=== PATIENT | male | born 1960 | race Caucasian/White ===

== ENCOUNTER 2021-02-15 11:59 | Observation (INO) | payer BC ==
[2021-02-15] MEDS ORDERED: Zithromax 500 MG/ 250 ML NaCl Premix 500 MG/250 ML IVPB IV STA (12:18)
[2021-02-15] MEDS ORDERED: ROCEPHIN 2 Gm-D5w 50ML BAG** 2 G/50 ML IVPB IV STA ×2 (12:19→17:19)
[2021-02-15] MEDS ORDERED: DECADRON 10MG INJ. IV ONE (12:20)
[2021-02-15] MEDS ORDERED: REMDESIVIR 200 MG in Sodium Chloride 0.9% 250 ML 250 ML IV ONE (12:20)
[2021-02-15] MEDS ORDERED: DECADRON 10MG INJ. ONE (12:27)
[2021-02-15] MEDS ORDERED: Sodium Chloride 0.9% 1000 ML 1,000 ML ONE (12:27)
[2021-02-15] MEDS ORDERED: Zithromax 500 MG/ 250 ML NaCl Premix 500 MG/250 ML IVPB IV ONE (12:27)
[2021-02-15] MEDS ORDERED: ROCEPHIN 2 Gm-D5w 50ML BAG** 2 G/50 ML IVPB IV ONE (12:28)
[2021-02-15 12:41] LABS: A-aADO2 620; ABG HEMOGLOBIN 14.4; ARTERIAL BLD GAS O2 SATURATION 89.2 % (95-100); ARTERIAL BLOOD GAS BASE EXCESS -0.3 (-2.0-2.0); ARTERIAL BLOOD GAS FIO2 100 %; ARTERIAL BLOOD GAS PCO2 32 mmHg (35-45); ARTERIAL BLOOD GAS PO2 53 mmHg (75-100); ARTERIAL BLOOD GAS pH 7.46 (7.35-7.45); CARBOXYHEMOGLOBIN 1.8 % THgb (0.0-6.9); HCO3- 22.8 (22-28); Methhemoglobin 0.8 % (1.4-1.5)
[2021-02-15 12:42] LABS: ABG SITE LEFT BRACHIAL
[2021-02-15 12:59] LABS: Hematocrit 45.6 % (42-50); Hemoglobin 14.8 gm/dl (12.5-18.0); Mean Cell Volume 86.2 fl (78-100); Mean Corpuscular Hgb Concent. 32.5 g/dl (32-36); Mean Platelet Volume 10.4 fl (7.5-11.0); Platelet Count 163 K/mm3 (150-450); Red Blood Count 5.29 M/mm3 (4.1-5.6); White Blood Count 5.2 K/mm3 (4.0-10.5)
[2021-02-15 13:18] LABS: ALBUMIN 3.8 g/dL (3.5-5.0); ALKALINE PHOSPHATASE 56 U/L (38-126); ANION GAP 16.5 MEQ/L (5-15); BLOOD UREA NITROGEN 42 mg/dL (9-20); CHLORIDE 93 mmol/L (98-107); Calcium 8.5 mg/dL (8.4-10.2); Carbon Dioxide 23 mmol/L (22-30); Creatinine 1 0.98 mg/dL (0.66-1.25); EST GLOMERULAR FILTRATION RATE > 60.0 ML/MIN; Glucose 108 mg/dL (74-106); MAGNESIUM 2.3 mg/dL (1.6-2.3); NT PRO BNP 65.9 pg/mL (0-900); Potassium 5.2 mmol/L (3.5-5.1); SGOT/AST 90 U/L (17-59); SGPT/ALT 47 U/L (0-50); SODIUM 128 mmol/L (137-145); Total Protein 7.1 g/dL (6.3-8.2)
[2021-02-15] MEDS ORDERED: Sodium Chloride 0.9% 1000 ML 1,000 ML IV STA (13:35)
[2021-02-15 13:43] LABS: Lymphocytes 12 % (24-44); Monocyte 2 % (0.0-12.0); Neutrophils 86 % (36.-66.); Total Cells Counted 100
[2021-02-15 13:44] LABS: ANISOCYTOSIS 1+; Platelet Estimate NORMAL (NORMAL); Toxic Granulation 1+
--- NOTE | 2021-02-15 13:55 | ERPHSYRPT ---
- History of Present Illness Time Seen by Provider: 02/15/21 12:04 Source: patient Exam Limitations: no limitations Patient Subjective Stated Complaint: Covid symptoms started last tuesday positive. sob off and on for couple days, low grade fever Triage Nursing Assessment: pt alert, resp easy, face mask in place, o2 SAT 75% RA .NRB applied. skin w/d/p Physician History: 60 years old male with multiple medical problems presented in the ER with chief complaint of increasing shortness of breath for the last 10 days. Patient was tested positive for COVID-19 almost a week ago reports progressive worsening shortness of breath especially with activity initially and now even at resting. Reports painful taking deep breath with generalized chest tightness and pressure. Patient also reports subjective feeling of fever and chills. His oxygen saturation is in 70s on presentation. Nonrebreather in upper 80s. Did n ot have vaccination for Covid. Timing/Duration: day(s) (10), constant, gradual onset, worse Severity of Dyspnea-Max: severe Severity of Dyspnea-Current: severe Possible Cause: illness exposure Modifying Factors: Improves With: oxygen. Worsens With: coughing, deep breath, exertion Associated Symptoms: cough, chest pain/discomfort, fever, chills, heaviness, lightheadedness, painful breathing, tightness Allergies/Adverse Reactions: No Known Drug Allergies Allergy (Unverified 02/15/21 12:21) Home Medications: Benzonatate 200 mg PO TID 02/15/21 [History] Diphenoxylate HCl/Atropine [Diphenoxylate-Atrop 2.5-0.025] 1 each PO DAILY 02/15/21 [History] Empagliflozin/Metformin HCl [Synjardy 5-1,000 mg Tablet] 1 ea DAILY 02/15/21 [History] Metoprolol Tartrate 25 mg [Lopressor 25MG Tab] 25 mg PO BID 02/15/21 [History] Mirabegron [Myrbetriq] 50 mg PO DAILY 02/15/21 [History] Simvastatin 40 mg PO BID 02/15/21 [History] Tamsulosin HCl 0.4 mg PO DAILY 02/15/21 [History] lisinopriL [Lisinopril] 10 mg PO DAILY 02/15/21 [History] Hx Influenza Vaccination/Date Given: No Hx Pneumococcal Vaccination/Date Given: No Immunizations Up to Date: Yes Travel Risk - International Travel Have you traveled outside of the country in past 3 weeks: No - Coronavirus Screening Are you exhibiting any of the following symptoms?: Yes Symptoms: Fever, Cough: New Onset, Shortness of Breath, Vomiting/Diarrhea, Loss of Taste or Smell, Headaches/Body Aches/Fatigue Close contact with a COVID-19 positive Pt in past 14-21 Days: Yes - Vaccine Status Have you recieved a Covid-19 vaccination: No - Review of Systems Constitutional: Fever, Chills, Fatigue, Weakness Eyes: No Symptoms Ears, Nose, & Throat: Throat Swelling Respiratory: Cough, Dyspnea, Dyspnea on Exertion (PEREZ), Wheezing Cardiac: Chest Pain, Palpitations Abdominal/Gastrointestinal: No Symptoms Genitourinary Symptoms: No Symptoms Musculoskeletal: Back Pain, Myalgias Neurological: Dizziness Psychological: No Symptoms Endocrine: No Symptoms Hematologic/Lymphatic: No Symptoms Immunological/Allergic: No Symptoms - Past Medical History Pertinent Past Medical History: Yes Cardiac History: Coronary Artery Disease Endocrine Medical History: Diabetes Type II - Past Surgical History Past Surgical History: Yes - Social History Smoking Status: Former smoker Exposure to second hand smoke: No Drug Use: none Patient Lives Alone: No - Nursing Vital Signs Nursing Vital Signs: Initial Vital Signs Respiratory Rate 24 02/15/21 12:01 O2 Sat by Pulse Oximetry 79 L 02/15/21 12:01 Pain Scale Pain Intensity 3 - Physical Exam General Appearance: moderate distress, alert, anxiety Eye Exam: PERRL/EOMI, eyes nml inspection Ears, Nose, Throat Exam: pharyngeal erythema Neck Exam: normal inspection, non-tender, full range of motion Respiratory Exam: respiratory distress, diminished breath sounds, accessory muscle use, crackles/rales, rhonchi, wheezing Cardiovascular/Chest Exam: normal heart sounds, regular rate/rhythm Abdominal/Gastrointestinal Exam: soft, No tenderness Extremity Exam: non-tender, normal range of motion, pedal edema Neurologic Exam: alert, oriented x 3, cooperative, cell tuber hand II-XII nml as tested Skin Exam: normal color SpO2 Interpretation: hypoxic SpO2: 75 O2 Delivery: Non-rebreather - Course EKG Interpreted by Me: RATE (90), Sinus Rhythm, NORMAL AXIS, LAFB, Right Bundle Branch Block, Non-specific ST Changes Ordered Tests: Active Orders 24 hr Category Date Time Status Foreign Food Specialty Cook STAT Care 02/15/21 12:19 Active EKG-ER Only STAT Care 02/15/21 12:18 Active IV Insertion STAT Care 02/15/21 12:18 Active Pulse Oximetry (ED) STAT Care 02/15/21 12:18 Active Rectal Temperature STAT Care 02/15/21 12:18 Active CHEST 1 VIEW (PORTABLE) Stat Exams 02/15/21 13:01 Taken CHEST WITH CONTRAST [CT] Stat Exams 02/15/21 15:39 Taken ABG [ARTERIAL BLOOD GASES] Stat Lab 02/15/21 16:00 Completed ARTERIAL BLOOD GASES Stat Lab 02/15/21 12:18 Completed BLOOD CULTURE Stat Lab 02/15/21 12:25 Received CBC W DIFF Stat Lab 02/15/21 12:35 Completed CMP Stat Lab 02/15/21 12:35 Completed D-DIMER QUANTITATIVE Stat Lab 02/15/21 12:30 Completed Lactic Acid Stat Lab 02/15/21 12:18 Completed MAGNESIUM Stat Lab 02/15/21 12:35 Completed Manual Differential NC Stat Lab 02/15/21 12:35 Completed NT PRO BNP Stat Lab 02/15/21 12:35 Completed TROPONIN Q3H Lab 02/15/21 12:40 Completed TROPONIN Q3H Lab 02/15/21 16:20 Received TROPONIN Q3H Lab 02/15/21 18:30 Ordered TROPONIN Q3H Lab 02/15/21 21:30 Ordered TROPONIN Q3H Lab 02/16/21 00:30 Ordered BiPap/CPAP STAT RT 02/15/21 12:18 Completed Transfer Order Routine Transfer 02/15/21 Ordered Medication Summary Discontinued Medications Generic Name Dose Route Start Last Admin Trade Name Freq PRN Reason Stop Dose Admin Acetaminophen Confirm 02/15/21 15:35 Tylenol Suspension 160 Mg/5 Ml Administered 02/15/21 15:36 Dose 160 mg .ROUTE .STK-MED ONE Acetaminophen 600 mg 02/15/21 15:41 02/15/21 15:43 Tylenol Suspension 160 Mg/5 Ml PO 02/15/21 15:42 600 mg STAT ONE Administration Dexamethasone Sodium Phosphate 6 mg 02/15/21 12:20 02/15/21 12:05 Decadron 10mg Inj. IV 02/15/21 12:21 6 mg STAT ONE Administration Dexamethasone Sodium Phosphate Confirm 02/15/21 12:27 Decadron 10mg Inj. Administered 02/15/21 12:28 Dose 10 mg .ROUTE .STK-MED ONE Azithromycin 500 mg in 250 mls @ 250 mls/hr 02/15/21 12:18 02/15/21 13:40 Zithromax 500 Mg/ 250 Ml Nacl Premix IV 02/15/21 13:17 Infused STAT STA Infusion Ceftriaxone Sodium/Dextrose 2 g in 50 mls @ 100 mls/hr 02/15/21 12:19 12:38 Rocephin 2 Gm-D5w 50ml Bag IV 02/15/21 12:48 Infused STAT STA Infusion Remdesivir 200 mg/ Sodium 250 mls @ 125 mls/hr 02/15/21 12:20 02/15/21 14:32 Chloride IV 02/15/21 14:19 125 mls/hr ONCE ONE Administration Azithromycin Confirm 02/15/21 12:27 Zithromax 500 Mg/ 250 Ml Nacl Premix Administered 02/15/21 12:28 Dose 500 mg in 250 mls @ ud IV .STK-MED ONE Sodium Chloride Confirm 02/15/21 12:27 Sodium Chloride 0.9% 1000 Ml Administered 02/15/21 12:28 Dose 1,000 mls @ ud .ROUTE .STK-MED ONE Ceftriaxone Sodium/Dextrose Confirm 02/15/21 12:28 Rocephin 2 Gm-D5w 50ml Bag Administered 02/15/21 12:29 Dose 2 g in 50 mls @ ud IV .STK-MED ONE Sodium Chloride 1,000 mls @ 999 mls/hr 02/15/21 13:35 02/15/21 14:37 Sodium Chloride 0.9% 1000 Ml IV 02/15/21 14:35 Infused .Q1H1M STA Infusion Lorazepam 1 mg 02/15/21 14:21 02/15/21 14:24 Ativan 2 Mg/1 Ml Vial IV 02/15/21 14:22 1 mg 1XONLY ONE Administration Lorazepam Confirm 02/15/21 14:23 Ativan 2 Mg/1 Ml Vial Administered 02/15/21 14:24 Dose 2 mg .ROUTE .STK-MED ONE Lab/Rad Data: Laboratory Result Diagrams 02/15/21 12:35 02/15/21 12:35 Laboratory Results 02/15/21 02/15/21 02/15/21 Range/Units 16:00 12:40 12:35 WBC (4.0-10.5) K/mm3 RBC (4.1-5.6) M/mm3 Hgb (12.5-18.0) gm/dl Hct (42-50) % MCV (78-100) fl MCH (26-32) pg MCHC (32-36) g/dl RDW (11.5-14.0) % Plt Count (150-450) K/mm3 MPV (7.5-11.0) fl Segmented Neutrophils (36.-66.) % Lymphocytes (Manual) (24-44) % Monocytes (Manual) (0.0-12.0) % Toxic Granulation Platelet Estimate (NORMAL) RBC Morphology Anisocytosis D-Dimer (215-500) ng/mL Puncture Site LEFT BRACHIAL pCO2 40 (35-45) mmHg pO2 102 H (75-100) mmHg Base Excess -3.9 L (-2.0-2.0) O2 Saturation 96.8 (94-100) g/dF ABG pH 7.34 L (7.35-7.45) ABG HCO3 21.6 L (22-28) ABG O2 Sat (Measured) 98.2 (95-100) % Hebert Test NOT APPLICABLE A-a Gradient 561 a/A Ratio 0.15 Hemoglobin 13.4 Carboxyhemoglobin 0.7 (0.0-6.9) % THgb Methemoglobin 0.8 L (1.4-1.5) % Potassium 4.8 5.2 H (3.5-5.1) Temperature 37.0 C POC O2 Flow Rate 100 % Vent Mode BiPAP Inspiratory BiPAP 14 Expiratory BiPAP 8 Sodium 128 L (137-145) mmol/L Chloride 93 L (98-107) mmol/L Carbon Dioxide 23 (22-30) mmol/L Anion Gap 16.5 H (5-15) MEQ/L BUN 42 H (9-20) mg/dL Creatinine 0.98 (0.66-1.25) mg/dL Estimated GFR > 60.0 ML/MIN Glucose 108 H (74-106) mg/dL Lactic Acid (0.4-2.0) Calcium 8.5 (8.4-10.2) mg/dL Magnesium 2.3 (1.6-2.3) mg/dL Total Bilirubin 0.50 (0.2-1.3) mg/dL AST 90 H (17-59) U/L ALT 47 (0-50) U/L Alkaline Phosphatase 56 (38-126) U/L Troponin I < 0.012 (0.000-0.034) ng/mL NT-Pro-B Natriuret Pep 65.9 (0-900) pg/mL Serum Total Protein 7.1 (6.3-8.2) g/dL Albumin 3.8 (3.5-5.0) g/dL 02/15/21 02/15/21 02/15/21 Range/Units 12:35 12:30 12:18 WBC 5.2 (4.0-10.5) K/mm3 RBC 5.29 (4.1-5.6) M/mm3 Hgb 14.8 (12.5-18.0) gm/dl Hct 45.6 (42-50) % MCV 86.2 (78-100) fl MCH 28.0 (26-32) pg MCHC 32.5 (32-36) g/dl RDW 15.0 H (11.5-14.0) % Plt Count 163 (150-450) K/mm3 MPV 10.4 (7.5-11.0) fl Segmented Neutrophils 86 H (36.-66.) % Lymphocytes (Manual) 12 L (24-44) % Monocytes (Manual) 2 (0.0-12.0) % Toxic Granulation 1+ Platelet Estimate NORMAL (NORMAL) RBC Morphology ABNORMAL Anisocytosis 1+ D-Dimer 1518 H* (215-500) ng/mL Puncture Site LEFT BRACHIAL pCO2 32 L (35-45) mmHg pO2 53 L (75-100) mmHg Base Excess -0.3 (-2.0-2.0) O2 Saturation 87.0 L (94-100) g/dF ABG pH 7.46 H (7.35-7.45) ABG HCO3 22.8 (22-28) ABG O2 Sat (Measured) 89.2 L (95-100) % Hebert Test NOT APPLICABLE A-a Gradient 620 a/A Ratio 0.08 Hemoglobin 14.4 Carboxyhemoglobin 1.8 (0.0-6.9) % THgb Methemoglobin 0.8 L (1.4-1.5) % Potassium 5.0 (3.5-5.1) Temperature 37.0 C POC O2 Flow Rate 100 % Vent Mode Inspiratory BiPAP Expiratory BiPAP Sodium (137-145) mmol/L Chloride (98-107) mmol/L Carbon Dioxide (22-30) mmol/L Anion Gap (5-15) MEQ/L BUN (9-20) mg/dL Creatinine (0.66-1.25) mg/dL Estimated GFR ML/MIN Glucose (74-106) mg/dL Lactic Acid 1.0 (0.4-2.0) Calcium (8.4-10.2) mg/dL Magnesium (1.6-2.3) mg/dL Total Bilirubin (0.2-1.3) mg/dL AST (17-59) U/L ALT (0-50) U/L Alkaline Phosphatase (38-126) U/L Troponin I (0.000-0.034) ng/mL NT-Pro-B Natriuret Pep (0-900) pg/mL Serum Total Protein (6.3-8.2) g/dL Albumin (3.5-5.0) g/dL - Progress Progress: improved Air Movement: fair Progress Note: 02/15/21 13:53 Patient was in moderate respiratory distress on presentation with sats around 70s. Placed on nonrebreather which helped him with breathing but brought sats only to mid/upper 80s, placed on BiPAP and is feeling better with sats in low 90s. Given Decadron and remdesivir. Chest x-ray showed bilateral airspace disease consistent with COVID-19 reviewed by me, official report is pending. Has normal white count, lactate. Does have worsening of renal function with elevated BUN with low sodium. Given a fluid bolus as well. EKG showed sinus rhythm with no acute ST elevation and negative troponins. He is also given a dose of Rocephin and Zithromax. D-dimers are elevated, CTA is currently pending, discussed with , reviewed history, work-up, has seen patient in the ER and agreed with admission to the Covid floor. I would follow-up with the results of CTA and if anything abnormal, admitting doctor would be informed. 02/15/21 16:51 CTA is negative for PE, dissection but has bilateral Covid pneumonia and other chronic findings. Patient is being admitted to Covid floor. Blood Culture(s) Obtained: Yes Antibiotics given: Yes Discussed with : Miguel Will see patient in: hospital (full admit) Counseled pt/family regarding: lab results, diagnosis, rad results - Departure Departure Disposition: In-patient Admission Clinical Impression: COVID-19 Bilateral pneumonia Qualifiers: Pneumonia type: due to unspecified organism Lung location: unspecified part of lung Qualified Code(s): J18.9 - Pneumonia, unspecified organism Respiratory failure Qualifiers: Chronicity: acute Respiratory failure complication: hypoxia Qualified Code(s): J96.01 - Acute respiratory failure with hypoxia Condition: Fair Critical Care Time: Yes Critical Care Time(excluding separately billable procedures): Critical 30-74 mins Referrals: LULU FORD MD [Primary Care Provider] -
[2021-02-15] MEDS ORDERED: Ativan 2 MG/1 ML VIAL IV ONE (14:21)
[2021-02-15] MEDS ORDERED: Ativan 2 MG/1 ML VIAL ONE (14:23)
[2021-02-15] MEDS ORDERED: HOLD METFORMIN PRODUCTS FOR 48 HOURS MC SCH (14:40)
[2021-02-15] MEDS ORDERED: TYLENOL SUSPENSION 160 MG/5 ML ONE (15:35)
[2021-02-15] MEDS ORDERED: TYLENOL SUSPENSION 160 MG/5 ML PO ONE (15:41)
[2021-02-15 16:17] LABS: A-aADO2 561; ABG HEMOGLOBIN 13.4; ABG POTASSIUM 4.8 (3.5-5.1); ABG SITE LEFT BRACHIAL; ARTERIAL BLD GAS O2 SATURATION 98.2 % (95-100); ARTERIAL BLOOD GAS BASE EXCESS -3.9 (-2.0-2.0); ARTERIAL BLOOD GAS FIO2 100 %; ARTERIAL BLOOD GAS PCO2 40 mmHg (35-45); ARTERIAL BLOOD GAS PO2 102 mmHg (75-100); ARTERIAL BLOOD GAS VENT MODE BiPAP; ARTERIAL BLOOD GAS pH 7.34 (7.35-7.45); CARBOXYHEMOGLOBIN 0.7 % THgb (0.0-6.9); HCO3- 21.6 (22-28); HGB O2 SAT 96.8 g/dF (94-100); Methhemoglobin 0.8 % (1.4-1.5)
[2021-02-15] MEDS ORDERED: Zofran 4 MG/2 ML VIAL IV PRN (17:19)
[2021-02-15] MEDS ORDERED: TYLENOL 325 MG PO PRN (17:19)
[2021-02-15] MEDS: Sodium Chloride 0.9% 1000 ML 1,000 ML IV SCH (17:47)
[2021-02-15 19:22] LABS: Appearance CLEAR (CLEAR); Bilirubin NEGATIVE (NEGATIVE); Blood SMALL Ery/ul (0-5); Glucose >=500 mg/dL (NEGATIVE); Ketones NEGATIVE (NEGATIVE); Leukocyte Esterase NEGATIVE (NEGATIVE); Mucus SLIGHT /HPF (NEGATIVE); Nitrite NEGATIVE (NEGATIVE); Protein,Urine Dip NEGATIVE (Negative); Specific Gravity 1.029 (1.005-1.025); Urobilinogen NEGATIVE mg/dL (0-1); WBC 0-2 /HPF (0-5)
[2021-02-15 19:23] LABS: Bacteria NONE SEEN /HPF (NEGATIVE)
--- NOTE | 2021-02-15 21:39 | XRAY ---
Indication: Short of breath. Elevated d-dimer. Positive covid 19. Multiple contiguous axial images obtained through the chest using 100 cc Isovue 370 contrast and PE protocol. Comparison: None There is good opacification of the pulmonary arteries. However diffuse respiration artifact limits evaluation of the lobar and segmental branches. No obvious central pulmonary embolus. Heart not enlarged. Aorta is normal in course and caliber. Small mediastinal and right hilar calcified nodes. Lungs demonstrates diffuse bilateral consolidating airspace disease without effusion. Bony thorax intact with flowing osteophytes throughout the spine. Limited upper abdomen demonstrates fatty liver and 2.3 cm gallstone. Impression: 1. Pulmonary embolus evaluation limited by respiration artifact. No obvious central pulmonary embolus. 2. Diffuse bilateral consolidating airspace disease. Findings commonly seen with Covid 19 pneumonia. 3. Incidental fatty liver, cholelithiasis, old granulomas disease, and chronic bony findings. Comment: Preliminary interpretation made by [facility]. No critical discrepancy.
--- NOTE | 2021-02-15 21:41 | XRAY ---
Indication: Cough and short of breath. Positive covid 19. Comparison: None Portable chest demonstrates diffuse bilateral airspace disease without large effusion. Heart not enlarged. Bony thorax intact with mild degenerative changes.
[2021-02-16] MEDS ORDERED: Ativan 2 MG/1 ML VIAL IV PRN (02:16)
[2021-02-16] MEDS: Sodium Chloride 0.9% 1000 ML 1,000 ML IV SCH (02:21)
[2021-02-16 05:14] LABS: ARTERIAL BLOOD GAS PCO2 38 mmHg (35-45); ARTERIAL BLOOD GAS PO2 72 mmHg (75-100); ARTERIAL BLOOD GAS pH 7.39 (7.35-7.45)
[2021-02-16 05:15] LABS: A-aADO2 594; ABG HEMOGLOBIN 14.9; ABG POTASSIUM 4.6 (3.5-5.1); ARTERIAL BLD GAS O2 SATURATION 96.1 % (95-100); ARTERIAL BLOOD GAS BASE EXCESS -1.7 (-2.0-2.0); ARTERIAL BLOOD GAS FIO2 100 %; CARBON DIOXIDE 24 mEq/L (23-27); HCO3- 23 (22-28); Methhemoglobin 0.6 % (1.4-1.5)
[2021-02-16 05:16] LABS: ABG SITE RIGHT BRACHIAL; CARBOXYHEMOGLOBIN 1.1 % THgb (0.0-6.9); HGB O2 SAT 94.5 g/dF (94-100)
[2021-02-16 05:44] LABS: Hematocrit 47.2 % (42-50); Hemoglobin 15.1 gm/dl (12.5-18.0); Mean Cell Volume 87.1 fl (78-100); Mean Corpuscular Hemoglobin 27.9 pg (26-32); Mean Platelet Volume 9.8 fl (7.5-11.0); Platelet Count 183 K/mm3 (150-450); Red Blood Count 5.42 M/mm3 (4.1-5.6); White Blood Count 4.5 K/mm3 (4.0-10.5)
[2021-02-16 06:27] LABS: BAND 3 % (0.0-2.0); Lymphocytes 9 % (24-44); Monocyte 4 % (0.0-12.0); Neutrophils 84 % (36.-66.); Total Cells Counted 100
[2021-02-16 06:28] LABS: ALBUMIN 3.4 g/dL (3.5-5.0); ALKALINE PHOSPHATASE 56 U/L (38-126); ANION GAP 13.8 MEQ/L (5-15); BLOOD UREA NITROGEN 25 mg/dL (9-20); CHLORIDE 102 mmol/L (98-107); Calcium 8.3 mg/dL (8.4-10.2); Carbon Dioxide 25 mmol/L (22-30); Creatinine 1 0.78 mg/dL (0.66-1.25); EST GLOMERULAR FILTRATION RATE > 60.0 ML/MIN; Glucose 153 mg/dL (74-106); Platelet Estimate NORMAL (NORMAL); SGOT/AST 76 U/L (17-59); SGPT/ALT 50 U/L (0-50); SODIUM 136 mmol/L (137-145); Total Protein 6.6 g/dL (6.3-8.2)
[2021-02-16] MEDS ORDERED: PROTONIX 40 MG IV IV SCH (10:00)
[2021-02-16] MEDS ORDERED: ENOXAPARIN SODIUM SQ SCH (10:00)
[2021-02-16] MEDS ORDERED: Zithromax 500 MG/ 250 ML NaCl Premix 500 MG/250 ML IVPB IV SCH (10:00)
[2021-02-16] MEDS ORDERED: DECADRON 10MG INJ. IV SCH (10:00)
--- NOTE | 2021-02-16 10:46 | XRAY ---
Indication: Follow-up Covid 19. Short of breath. Comparison: One day earlier. Portable chest again demonstrates diffuse bilateral airspace disease slightly worsened in both upper lungs. No large effusion. Heart not enlarged.
[2021-02-16 10:49] VITALS: O2SAT 94
--- NOTE | 2021-02-16 10:50 | PCM.SSS ---
History of Present Illness - Chief Complaint Chief Complaint: severe shortness of breath for 3 days History of Present Illness: is a 60 year old male.multiple medical problems presented in the ER with chief complaint of increasing shortness of breath for the last 10 days. Patient was tested positive for COVID-19 almost a week ago reports progressive worsening shortness of breath especially with activity initially and now even at resting. Reports painful taking deep breath with generalized chest tightness and pressure. Patient also reports subjective feeling of fever and chills. His oxygen saturation is in 70s on presentation. Nonrebreather in upper 80s. Did not have vaccination for Covid. Timing/Duration: day(s) (10), constant, gradual onset, worse Severity of Dyspnea-Max: severe Severity of Dyspnea-Current: severe Possible Cause: illness exposure Modifying Factors: Improves With: oxygen. Worsens With: coughing, deep breath, exertion Associated Symptoms: cough, chest pain/discomfort, fever, chills, heaviness, lig htheadedness, painful breathing, tightness - Review of Systems Constitutional: Lethargy, No Fever, No Chills Eyes: No Symptoms Ears, Nose, & Throat: No Symptoms Respiratory: Cough, Orthopnea, Short Of Breath, Wheezing Cardiac: No Chest Pain, No Edema, No Syncope Abdominal/Gastrointestinal: No Abdominal Pain, No Nausea, No Vomiting, No Diarrhea Genitourinary Symptoms: No Dysuria Musculoskeletal: No Back Pain, No Neck Pain Skin: No Rash Neurological: No Dizziness, No Focal Weakness, No Sensory Changes Psychological: No Symptoms Endocrine: No Symptoms Hematologic/Lymphatic: No Symptoms Immunological/Allergic: No Symptoms Medications & Allergies Home Medications: Home Medication List Benzonatate 200 mg PO TID 02/15/21 [History Confirmed 02/15/21] Diphenoxylate HCl/Atropine [Diphenoxylate-Atrop 2.5-0.025] 1 each PO Q2H/PRN PRN 02/15/21 [History Confirmed 02/16/21] Empagliflozin/Metformin HCl [Synjardy 5-1,000 mg Tablet] 1 ea PO DAILY 02/15/21 [History Confirmed 02/16/21] Metoprolol Tartrate 25 mg [Lopressor 25MG Tab] 25 mg PO BID 02/15/21 [History Confirmed 02/15/21] Mirabegron [Myrbetriq] 50 mg PO DAILY 02/15/21 [History Confirmed 02/15/21] Simvastatin 40 mg PO BID 02/15/21 [History Confirmed 02/15/21] Tamsulosin HCl 2 tab PO DAILY 02/15/21 [History Confirmed 02/16/21] lisinopriL [Lisinopril] 10 mg PO DAILY 02/15/21 [History Confirmed 02/15/21] Allergies/Adverse Reactions: Allergies Allergy/AdvReac Type Severity Reaction Status Date / Time No Known Drug Allergies Allergy Unverified 02/15/21 12:21 - Past Medical History Past Medical History: Yes Cardiac History: Coronary Artery Disease Endocrine Medical History: Diabetes Type II - Past Surgical History Past Surgical History: Yes - Social History Smoking Status: Former smoker Exposure to second hand smoke: No Alcohol: None Drug Use: none - Physical Exam Vital Signs: Vital Signs - 24 hr Temp Pulse Resp BP BP Pulse Ox 02/16/21 10:00 28 H 02/16/21 09:54 84 22 91 L 02/16/21 09:00 83 24 97 02/16/21 07:32 96.9 F 91 H 20 161/72 95 02/16/21 07:26 24 02/16/21 07:15 93 L 02/16/21 07:00 92 H 18 93 L 02/16/21 06:18 28 H 89 L 02/16/21 05:00 97.5 F 86 28 H 150/72 92 L 02/16/21 04:16 90 26 H 154/86 92 L 02/16/21 04:00 22 02/16/21 03:01 22 148/77 89 L 02/16/21 02:12 24 02/16/21 02:00 96.2 F 84 24 142/68 92 L 02/16/21 01:00 97.2 F 72 24 124/68 89 L 02/16/21 00:14 96.9 F 80 24 137/62 90 L 02/16/21 00:00 24 02/15/21 23:00 96.1 F 80 24 126/68 90 L 02/15/21 22:03 78 24 135/68 96 02/15/21 22:02 24 02/15/21 21:05 97.1 F 65 24 136/78 92 L 02/15/21 20:06 71 02/15/21 20:02 24 02/15/21 19:47 96.1 F 95 H 24 132/72 92 L 02/15/21 19:30 93 L 02/15/21 19:00 69 93 L 02/15/21 18:11 94 L 02/15/21 17:40 74 26 H 94 L 02/15/21 17:26 98.6 F 78 30 H 127/79 92 L 02/15/21 17:25 97.7 F 82 21 127/78 75 L 02/15/21 17:00 98.6 F 78 30 H 127/79 92 L 02/15/21 16:52 75 L 02/15/21 16:03 82 29 H 97/53 95 02/15/21 15:48 95 H 24 111/60 94 L 02/15/21 14:31 86 24 91/66 97 02/15/21 14:00 88 22 119/70 96 02/15/21 13:17 75 L 02/15/21 13:00 90 24 110/66 95 02/15/21 12:01 24 79 L General Appearance: moderate distress, alert Neurologic Exam: alert, oriented x 3, cooperative, normal mood/affect, No motor deficits Eye Exam: PERRL/EOMI, eyes nml inspection Ears, Nose, Throat Exam: normal ENT inspection, TMs normal, pharynx normal, moist mucous membranes Neck Exam: normal inspection, non-tender, supple, full range of motion Respiratory Exam: diminished breath sounds, accessory muscle use, crackles/rales, rhonchi, wheezing, No respiratory distress Cardiovascular Exam: regular rate/rhythm, normal heart sounds, normal peripheral pulses Gastrointestinal/Abdomen Exam: soft, normal bowel sounds, No tenderness, No mass Back Exam: normal inspection, normal range of motion, No CVA tenderness, No vertebral tenderness Extremity Exam: normal inspection, normal range of motion, pelvis stable Skin Exam: normal color, warm, dry, No rash Lymphatic Exam: No adenopathy Results - Labs Lab/Micro Results: Lab Results-Last 24 Hours 02/15/21 02/15/21 02/15/21 Range/Units 12:18 12:30 12:35 WBC 5.2 (4.0-10.5) K/mm3 RBC 5.29 (4.1-5.6) M/mm3 Hgb 14.8 (12.5-18.0) gm/dl Hct 45.6 (42-50) % MCV 86.2 (78-100) fl MCH 28.0 (26-32) pg MCHC 32.5 (32-36) g/dl RDW 15.0 H (11.5-14.0) % Plt Count 163 (150-450) K/mm3 MPV 10.4 (7.5-11.0) fl Segmented Neutrophils 86 H (36.-66.) % Band Neutrophils (0.0-2.0) % Lymphocytes (Manual) 12 L (24-44) % Monocytes (Manual) 2 (0.0-12.0) % Toxic Granulation 1+ Platelet Estimate NORMAL (NORMAL) RBC Morphology ABNORMAL Anisocytosis 1+ D-Dimer 1518 H* (215-500) ng/mL Puncture Site LEFT BRACHIAL pCO2 32 L (35-45) mmHg pO2 53 L (75-100) mmHg Base Excess -0.3 (-2.0-2.0) O2 Saturation 87.0 L (94-100) g/dF ABG pH 7.46 H (7.35-7.45) ABG HCO3 22.8 (22-28) ABG O2 Sat (Measured) 89.2 L (95-100) % Hebert Test NOT APPLICABLE A-a Gradient 620 a/A Ratio 0.08 Hemoglobin 14.4 Carboxyhemoglobin 1.8 (0.0-6.9) % THgb Methemoglobin 0.8 L (1.4-1.5) % Potassium 5.0 (3.5-5.1) Temperature 37.0 C POC O2 Flow Rate 100 % Vent Mode Inspiratory BiPAP Expiratory BiPAP Sodium (137-145) mmol/L Chloride (98-107) mmol/L Carbon Dioxide (22-30) mmol/L Anion Gap (5-15) MEQ/L BUN (9-20) mg/dL Creatinine (0.66-1.25) mg/dL Estimated GFR ML/MIN Glucose (74-106) mg/dL POC Glucometer (74 to 106) mg/dL Lactic Acid 1.0 (0.4-2.0) Calcium (8.4-10.2) mg/dL Magnesium (1.6-2.3) mg/dL Total Bilirubin (0.2-1.3) mg/dL AST (17-59) U/L ALT (0-50) U/L Alkaline Phosphatase (38-126) U/L Troponin I (0.000-0.034) ng/mL NT-Pro-B Natriuret Pep (0-900) pg/mL Serum Total Protein (6.3-8.2) g/dL Albumin (3.5-5.0) g/dL Urine Color (YELLOW) Urine Appearance (CLEAR) Urine pH (5-6) Ur Specific [place] (1.005-1.025) Urine Protein (Negative) Urine Ketones (NEGATIVE) Urine Blood (0-5) Subhash/ul Urine Nitrite (NEGATIVE) Urine Bilirubin (NEGATIVE) Urine Urobilinogen (0-1) mg/dL Ur Leukocyte Esterase (NEGATIVE) Urine WBC (Auto) (0-5) /HPF Urine RBC (Auto) (0-2) /HPF U Epithel Cells (Auto) (FEW) /HPF Urine Bacteria (Auto) (NEGATIVE) /HPF Urine Mucus (Auto) (NEGATIVE) /HPF Urine Culture Reflexed (NO) Urine Glucose (NEGATIVE) mg/dL 02/15/21 02/15/21 02/15/21 Range/Units 12:35 12:40 16:00 WBC (4.0-10.5) K/mm3 RBC (4.1-5.6) M/mm3 Hgb (12.5-18.0) gm/dl Hct (42-50) % MCV (78-100) fl MCH (26-32) pg MCHC (32-36) g/dl RDW (11.5-14.0) % Plt Count (150-450) K/mm3 MPV (7.5-11.0) fl Segmented Neutrophils (36.-66.) % Band Neutrophils (0.0-2.0) % Lymphocytes (Manual) (24-44) % Monocytes (Manual) (0.0-12.0) % Toxic Granulation Platelet Estimate (NORMAL) RBC Morphology Anisocytosis D-Dimer (215-500) ng/mL Puncture Site LEFT BRACHIAL pCO2 40 (35-45) mmHg pO2 102 H (75-100) mmHg Base Excess -3.9 L (-2.0-2.0) O2 Saturation 96.8 (94-100) g/dF ABG pH 7.34 L (7.35-7.45) ABG HCO3 21.6 L (22-28) ABG O2 Sat (Measured) 98.2 (95-100) % Hebert Test NOT APPLICABLE A-a Gradient 561 a/A Ratio 0.15 Hemoglobin 13.4 Carboxyhemoglobin 0.7 (0.0-6.9) % THgb Methemoglobin 0.8 L (1.4-1.5) % Potassium 5.2 H 4.8 (3.5-5.1) Temperature 37.0 C POC O2 Flow Rate 100 % Vent Mode BiPAP Inspiratory BiPAP 14 Expiratory BiPAP 8 Sodium 128 L (137-145) mmol/L Chloride 93 L (98-107) mmol/L Carbon Dioxide 23 (22-30) mmol/L Anion Gap 16.5 H (5-15) MEQ/L BUN 42 H (9-20) mg/dL Creatinine 0.98 (0.66-1.25) mg/dL Estimated GFR > 60.0 ML/MIN Glucose 108 H (74-106) mg/dL POC Glucometer (74 to 106) mg/dL Lactic Acid (0.4-2.0) Calcium 8.5 (8.4-10.2) mg/dL Magnesium 2.3 (1.6-2.3) mg/dL Total Bilirubin 0.50 (0.2-1.3) mg/dL AST 90 H (17-59) U/L ALT 47 (0-50) U/L Alkaline Phosphatase 56 (38-126) U/L Troponin I < 0.012 (0.000-0.034) ng/mL NT-Pro-B Natriuret Pep 65.9 (0-900) pg/mL Serum Total Protein 7.1 (6.3-8.2) g/dL Albumin 3.8 (3.5-5.0) g/dL Urine Color (YELLOW) Urine Appearance (CLEAR) Urine pH (5-6) Ur Specific [place] (1.005-1.025) Urine Protein (Negative) Urine Ketones (NEGATIVE) Urine Blood (0-5) Subhash/ul Urine Nitrite (NEGATIVE) Urine Bilirubin (NEGATIVE) Urine Urobilinogen (0-1) mg/dL Ur Leukocyte Esterase (NEGATIVE) Urine WBC (Auto) (0-5) /HPF Urine RBC (Auto) (0-2) /HPF U Epithel Cells (Auto) (FEW) /HPF Urine Bacteria (Auto) (NEGATIVE) /HPF Urine Mucus (Auto) (NEGATIVE) /HPF Urine Culture Reflexed (NO) Urine Glucose (NEGATIVE) mg/dL 02/15/21 02/15/21 02/15/21 Range/Units 16:20 18:11 21:59 WBC (4.0-10.5) K/mm3 RBC (4.1-5.6) M/mm3 Hgb (12.5-18.0) gm/dl Hct (42-50) % MCV (78-100) fl MCH (26-32) pg MCHC (32-36) g/dl RDW (11.5-14.0) % Plt Count (150-450) K/mm3 MPV (7.5-11.0) fl Segmented Neutrophils (36.-66.) % Band Neutrophils (0.0-2.0) % Lymphocytes (Manual) (24-44) % Monocytes (Manual) (0.0-12.0) % Toxic Granulation Platelet Estimate (NORMAL) RBC Morphology Anisocytosis D-Dimer (215-500) ng/mL Puncture Site pCO2 (35-45) mmHg pO2 (75-100) mmHg Base Excess (-2.0-2.0) O2 Saturation (94-100) g/dF ABG pH (7.35-7.45) ABG HCO3 (22-28) ABG O2 Sat (Measured) (95-100) % Hebert Test A-a Gradient a/A Ratio Hemoglobin Carboxyhemoglobin (0.0-6.9) % THgb Methemoglobin (1.4-1.5) % Potassium (3.5-5.1) Temperature C POC O2 Flow Rate % Vent Mode Inspiratory BiPAP Expiratory BiPAP Sodium (137-145) mmol/L Chloride (98-107) mmol/L Carbon Dioxide (22-30) mmol/L Anion Gap (5-15) MEQ/L BUN (9-20) mg/dL Creatinine (0.66-1.25) mg/dL Estimated GFR ML/MIN Glucose (74-106) mg/dL POC Glucometer 156 H (74 to 106) mg/dL Lactic Acid (0.4-2.0) Calcium (8.4-10.2) mg/dL Magnesium (1.6-2.3) mg/dL Total Bilirubin (0.2-1.3) mg/dL AST (17-59) U/L ALT (0-50) U/L Alkaline Phosphatase (38-126) U/L Troponin I < 0.012 (0.000-0.034) ng/mL NT-Pro-B Natriuret Pep (0-900) pg/mL Serum Total Protein (6.3-8.2) g/dL Albumin (3.5-5.0) g/dL Urine Color YELLOW (YELLOW) Urine Appearance CLEAR (CLEAR) Urine pH 5.0 (5-6) Ur Specific [place] 1.029 (1.005-1.025) Urine Protein NEGATIVE (Negative) Urine Ketones NEGATIVE (NEGATIVE) Urine Blood SMALL (0-5) Subhash/ul Urine Nitrite NEGATIVE (NEGATIVE) Urine Bilirubin NEGATIVE (NEGATIVE) Urine Urobilinogen NEGATIVE (0-1) mg/dL Ur Leukocyte Esterase NEGATIVE (NEGATIVE) Urine WBC (Auto) 0-2 (0-5) /HPF Urine RBC (Auto) 3-5 (0-2) /HPF U Epithel Cells (Auto) NONE (FEW) /HPF Urine Bacteria (Auto) NONE SEEN (NEGATIVE) /HPF Urine Mucus (Auto) SLIGHT (NEGATIVE) /HPF Urine Culture Reflexed NO (NO) Urine Glucose >=500 (NEGATIVE) mg/dL 02/16/21 02/16/21 02/16/21 Range/Units 05:06 05:20 05:20 WBC 4.5 (4.0-10.5) K/mm3 RBC 5.42 (4.1-5.6) M/mm3 Hgb 15.1 (12.5-18.0) gm/dl Hct 47.2 (42-50) % MCV 87.1 (78-100) fl MCH 27.9 (26-32) pg MCHC 32.0 (32-36) g/dl RDW 15.0 H (11.5-14.0) % Plt Count 183 (150-450) K/mm3 MPV 9.8 (7.5-11.0) fl Segmented Neutrophils 84 H (36.-66.) % Band Neutrophils 3 H (0.0-2.0) % Lymphocytes (Manual) 9 L (24-44) % Monocytes (Manual) 4 (0.0-12.0) % Toxic Granulation Platelet Estimate NORMAL (NORMAL) RBC Morphology NORMAL Anisocytosis D-Dimer (215-500) ng/mL Puncture Site RIGHT BRACHIAL pCO2 38 (35-45) mmHg pO2 72 L (75-100) mmHg Base Excess -1.7 (-2.0-2.0) O2 Saturation 94.5 (94-100) g/dF ABG pH 7.39 (7.35-7.45) ABG HCO3 23 (22-28) ABG O2 Sat (Measured) 96.1 (95-100) % Hebert Test NOT APPLICABLE A-a Gradient 594 a/A Ratio 0.11 Hemoglobin 14.9 Carboxyhemoglobin 1.1 (0.0-6.9) % THgb Methemoglobin 0.6 L (1.4-1.5) % Potassium 4.6 5.0 (3.5-5.1) Temperature C POC O2 Flow Rate 100 % Vent Mode Inspiratory BiPAP 14 Expiratory BiPAP 8 Sodium 136 L D (137-145) mmol/L Chloride 102 (98-107) mmol/L Carbon Dioxide 24 25 (22-30) mmol/L Anion Gap 13.8 (5-15) MEQ/L BUN 25 H (9-20) mg/dL Creatinine 0.78 (0.66-1.25) mg/dL Estimated GFR > 60.0 ML/MIN Glucose 153 H (74-106) mg/dL POC Glucometer (74 to 106) mg/dL Lactic Acid (0.4-2.0) Calcium 8.3 L (8.4-10.2) mg/dL Magnesium (1.6-2.3) mg/dL Total Bilirubin 0.20 (0.2-1.3) mg/dL AST 76 H (17-59) U/L ALT 50 (0-50) U/L Alkaline Phosphatase 56 (38-126) U/L Troponin I (0.000-0.034) ng/mL NT-Pro-B Natriuret Pep (0-900) pg/mL Serum Total Protein 6.6 (6.3-8.2) g/dL Albumin 3.4 L (3.5-5.0) g/dL Urine Color (YELLOW) Urine Appearance (CLEAR) Urine pH (5-6) Ur Specific [place] (1.005-1.025) Urine Protein (Negative) Urine Ketones (NEGATIVE) Urine Blood (0-5) Subhash/ul Urine Nitrite (NEGATIVE) Urine Bilirubin (NEGATIVE) Urine Urobilinogen (0-1) mg/dL Ur Leukocyte Esterase (NEGATIVE) Urine WBC (Auto) (0-5) /HPF Urine RBC (Auto) (0-2) /HPF U Epithel Cells (Auto) (FEW) /HPF Urine Bacteria (Auto) (NEGATIVE) /HPF Urine Mucus (Auto) (NEGATIVE) /HPF Urine Culture Reflexed (NO) Urine Glucose (NEGATIVE) mg/dL 02/16/21 Range/Units 06:59 WBC (4.0-10.5) K/mm3 RBC (4.1-5.6) M/mm3 Hgb (12.5-18.0) gm/dl Hct (42-50) % MCV (78-100) fl MCH (26-32) pg MCHC (32-36) g/dl RDW (11.5-14.0) % Plt Count (150-450) K/mm3 MPV (7.5-11.0) fl Segmented Neutrophils (36.-66.) % Band Neutrophils (0.0-2.0) % Lymphocytes (Manual) (24-44) % Monocytes (Manual) (0.0-12.0) % Toxic Granulation Platelet Estimate (NORMAL) RBC Morphology Anisocytosis D-Dimer (215-500) ng/mL Puncture Site pCO2 (35-45) mmHg pO2 (75-100) mmHg Base Excess (-2.0-2.0) O2 Saturation (94-100) g/dF ABG pH (7.35-7.45) ABG HCO3 (22-28) ABG O2 Sat (Measured) (95-100) % Hebert Test A-a Gradient a/A Ratio Hemoglobin Carboxyhemoglobin (0.0-6.9) % THgb Methemoglobin (1.4-1.5) % Potassium (3.5-5.1) Temperature C POC O2 Flow Rate % Vent Mode Inspiratory BiPAP Expiratory BiPAP Sodium (137-145) mmol/L Chloride (98-107) mmol/L Carbon Dioxide (22-30) mmol/L Anion Gap (5-15) MEQ/L BUN (9-20) mg/dL Creatinine (0.66-1.25) mg/dL Estimated GFR ML/MIN Glucose (74-106) mg/dL POC Glucometer 130 H (74 to 106) mg/dL Lactic Acid (0.4-2.0) Calcium (8.4-10.2) mg/dL Magnesium (1.6-2.3) mg/dL Total Bilirubin (0.2-1.3) mg/dL AST (17-59) U/L ALT (0-50) U/L Alkaline Phosphatase (38-126) U/L Troponin I (0.000-0.034) ng/mL NT-Pro-B Natriuret Pep (0-900) pg/mL Serum Total Protein (6.3-8.2) g/dL Albumin (3.5-5.0) g/dL Urine Color (YELLOW) Urine Appearance (CLEAR) Urine pH (5-6) Ur Specific [place] (1.005-1.025) Urine Protein (Negative) Urine Ketones (NEGATIVE) Urine Blood (0-5) Subhash/ul Urine Nitrite (NEGATIVE) Urine Bilirubin (NEGATIVE) Urine Urobilinogen (0-1) mg/dL Ur Leukocyte Esterase (NEGATIVE) Urine WBC (Auto) (0-5) /HPF Urine RBC (Auto) (0-2) /HPF U Epithel Cells (Auto) (FEW) /HPF Urine Bacteria (Auto) (NEGATIVE) /HPF Urine Mucus (Auto) (NEGATIVE) /HPF Urine Culture Reflexed (NO) Urine Glucose (NEGATIVE) mg/dL Microbiology 02/15/21 17:36 Urine Culture - Preliminary Urine, Catheterized NO GROWTH TO DATE Accuchecks Date 02/15/21 Time 22:03 - Radiology Impressions Radiology Exams & Impressions: Radiology Procedures Category Date Time Status CHEST 1 VIEW (PORTABLE) Routine Exams 02/16/21 10:32 Completed CHEST 1 VIEW (PORTABLE) Stat Exams 02/15/21 13:01 Completed CHEST WITH CONTRAST [CT] Stat Exams 02/15/21 15:[address]/CHEST WITH CONTRAST Indication: Short of breath. Elevated d-dimer. Positive covid 19. Multiple contiguous axial images obtained through the chest using 100 cc Isovue 370 contrast and PE protocol. Comparison: None There is good opacification of the pulmonary arteries. However diffuse respiration artifact limits evaluation of the lobar and segmental branches. No obvious central pulmonary embolus. Heart not enlarged. Aorta is normal in course and caliber. Small mediastinal and right hilar calcified nodes. Lungs demonstrates diffuse bilateral consolidating airspace disease without effusion. Bony thorax intact with flowing osteophytes throughout the spine. Limited upper abdomen demonstrates fatty liver and 2.3 cm gallstone. Impression: 1. Pulmonary embolus evaluation limited by respiration artifact. No obvious central pulmonary embolus. 2. Diffuse bilateral consolidating airspace disease. Findings commonly seen with Covid 19 pneumonia. 3. Incidental fatty liver, cholelithiasis, old granulomas disease, and chronic bony findings. - Other Procedures and Tests Respiratory Therapy 02/15/21 18:10 Oxygen Oxymizer LPM 9 lpm 02/15/21 18:11 BiPap/CPAP ROUTINE Assessment/Plan (1) Bilateral pneumonia Current Visit: Yes Status: Acute Qualifiers: Pneumonia type: due to unspecified organism Lung location: unspecified part of lung Qualified Code(s): J18.9 - Pneumonia, unspecified organism Code(s): J18.9 - PNEUMONIA, UNSPECIFIED ORGANISM (2) COVID-19 Current Visit: Yes Status: Acute Code(s): U07.1 - COVID-19 (3) Respiratory failure Current Visit: Yes Status: Acute Qualifiers: Chronicity: acute Respiratory failure complication: hypoxia Qualified Code(s): J96.01 - Acute respiratory failure with hypoxia Code(s): J96.90 - RESPIRATORY FAILURE, UNSP, UNSP W HYPOXIA OR HYPERCAPNIA (4) Pneumonia due to COVID-19 virus Current Visit: Yes Status: Acute Code(s): U07.1 - COVID-19; J12.82 - PNEUMONIA DUE TO CORONAVIRUS DISEASE Hospital Summary - Hospital Course Hospital Course: Chief Complaint Diagnosis respiratory failure Allergies Allergy/AdvReac Type Severity Reaction Status Date / Time No Known Drug Allergies Allergy Unverified 02/15/21 12:21 Vital Signs (Last 24 hours) Temp Pulse Resp BP BP Pulse Ox 02/16/21 10:00 28 H 02/16/21 09:54 84 22 91 L 02/16/21 09:00 83 24 97 02/16/21 07:32 96.9 F 91 H 20 161/72 95 02/16/21 07:26 24 02/16/21 07:15 93 L 02/16/21 07:00 92 H 18 93 L 02/16/21 06:18 28 H 89 L 02/16/21 05:00 97.5 F 86 28 H 150/72 92 L 02/16/21 04:16 90 26 H 154/86 92 L 02/16/21 04:00 22 02/16/21 03:01 22 148/77 89 L 02/16/21 02:12 24 02/16/21 02:00 96.2 F 84 24 142/68 92 L 02/16/21 01:00 97.2 F 72 24 124/68 89 L 02/16/21 00:14 96.9 F 80 24 137/62 90 L 02/16/21 00:00 24 02/15/21 23:00 96.1 F 80 24 126/68 90 L 02/15/21 22:03 78 24 135/68 96 02/15/21 22:02 24 02/15/21 21:05 97.1 F 65 24 136/78 92 L 02/15/21 20:06 71 02/15/21 20:02 24 02/15/21 19:47 96.1 F 95 H 24 132/72 92 L 02/15/21 19:30 93 L 02/15/21 19:00 69 93 L 02/15/21 18:11 94 L 02/15/21 17:40 74 26 H 94 L 02/15/21 17:26 98.6 F 78 30 H 127/79 92 L 02/15/21 17:25 97.7 F 82 21 127/78 75 L 02/15/21 17:00 98.6 F 78 30 H 127/79 92 L 02/15/21 16:52 75 L 02/15/21 16:03 82 29 H 97/53 95 02/15/21 15:48 95 H 24 111/60 94 L 02/15/21 14:31 86 24 91/66 97 02/15/21 14:00 88 22 119/70 96 02/15/21 13:17 75 L 02/15/21 13:00 90 24 110/66 95 02/15/21 12:01 24 79 L Home Medications Medication Instructions Recorded Confirmed Last Taken Type Benzonatate 200 mg PO TID 02/15/21 02/15/21 Unknown History Diphenoxylate HCl/Atropine 1 each PO Q2H/PRN PRN 02/15/21 02/16/21 Unknown History [Diphenoxylate-Atrop 2.5-0.025] Empagliflozin/Metformin HCl 1 ea PO DAILY 02/15/21 02/16/21 Unknown History [Synjardy 5-1,000 mg Tablet] Metoprolol Tartrate 25 mg 25 mg PO BID 02/15/21 02/15/21 Unknown History [Lopressor 25MG Tab] Mirabegron [Myrbetriq] 50 mg PO DAILY 02/15/21 02/15/21 Unknown History Simvastatin 40 mg PO BID 02/15/21 02/15/21 Unknown History Tamsulosin HCl 2 tab PO DAILY 02/15/21 02/16/21 Unknown History lisinopriL [Lisinopril] 10 mg PO DAILY 02/15/21 02/15/21 Unknown History Current Medications Generic Name Dose Route Start Last Admin Trade Name Freq PRN Reason Stop Dose Admin Acetaminophen 650 mg 02/15/21 17:19 Tylenol 325 Mg PO 03/17/21 17:18 Q4H PRN PRN PAIN AND/OR FEVER Dexamethasone Sodium Phosphate 6 mg 02/16/21 10:00 02/16/21 10:01 Decadron 10mg Inj. IV 03/18/21 09:59 6 mg DAILY BRETT Administration Enoxaparin Sodium 40 mg 02/16/21 10:00 02/16/21 10:01 Enoxaparin Sodium SQ 03/18/21 09:59 40 mg DAILY BRETT Administration Sodium Chloride 1,000 mls @ 100 mls/hr 02/15/21 17:19 02/16/21 02:21 Sodium Chloride 0.9% 1000 Ml IV 03/17/21 17:18 100 mls/hr .Q10H BRETT Administration Remdesivir 100 mg/ Sodium 100 mls @ 100 mls/hr 02/16/21 15:00 Chloride IV 02/19/21 15:59 Q24H BRETT Lorazepam 1 mg 02/16/21 02:16 02/16/21 02:21 Ativan 2 Mg/1 Ml Vial IV 03/18/21 02:15 1 mg Q4H PRN PRN Administration ANXIETY/AGITATION Non-Formulary Medication 1 each 02/15/21 14:40 02/16/21 08:00 Hold Metformin Products For 48 Hours 02/17/21 14:39 Not Given Q24H BRETT Ondansetron HCl 4 mg 02/15/21 17:19 Zofran 4 Mg/2 Ml Vial IV 03/17/21 17:18 Q6H PRN PRN NAUSEA/VOMITING Pantoprazole Sodium 40 mg 02/16/21 10:00 02/16/21 10:01 Protonix 40 Mg Iv IV 03/18/21 09:59 40 mg Q24H10 BRETT Administration Discontinued Medications Generic Name Dose Route Start Last Admin Trade Name Freq PRN Reason Stop Dose Admin Acetaminophen Confirm 02/15/21 15:35 Tylenol Suspension 160 Mg/5 Ml Administered 02/15/21 15:36 Dose 160 mg .ROUTE .STK-MED ONE Acetaminophen 600 mg 02/15/21 15:41 02/15/21 15:43 Tylenol Suspension 160 Mg/5 Ml PO 02/15/21 15:42 600 mg STAT ONE Administration Dexamethasone Sodium Phosphate 6 mg 02/15/21 12:20 02/15/21 12:05 Decadron 10mg Inj. IV 02/15/21 12:21 6 mg STAT ONE Administration Dexamethasone Sodium Phosphate Confirm 02/15/21 12:27 Decadron 10mg Inj. Administered 02/15/21 12:28 Dose 10 mg .ROUTE .STK-MED ONE Azithromycin 500 mg in 250 mls @ 250 mls/hr 02/15/21 12:18 02/15/21 13:40 Zithromax 500 Mg/ 250 Ml Nacl Premix IV 02/15/21 13:17 Infused STAT STA Infusion Ceftriaxone Sodium/Dextrose 2 g in 50 mls @ 100 mls/hr 02/15/21 12:19 02/15/21 12:38 Rocephin 2 Gm-D5w 50ml Bag IV 02/15/21 12:48 Infused STAT STA Infusion Remdesivir 200 mg/ Sodium 250 mls @ 125 mls/hr 02/15/21 12:20 02/15/21 14:32 Chloride IV 02/15/21 14:19 125 mls/hr ONCE ONE Administration Azithromycin Confirm 02/15/21 12:27 Zithromax 500 Mg/ 250 Ml Nacl Premix Administered 02/15/21 12:28 Dose 500 mg in 250 mls @ ud IV .STK-MED ONE Sodium Chloride Confirm 02/15/21 12:27 Sodium Chloride 0.9% 1000 Ml Administered 02/15/21 12:28 Dose 1,000 mls @ ud .ROUTE .STK-MED ONE Ceftriaxone Sodium/Dextrose Confirm 02/15/21 12:28 Rocephin 2 Gm-D5w 50ml Bag Administered 02/15/21 12:29 Dose 2 g in 50 mls @ ud IV .STK-MED ONE Sodium Chloride 1,000 mls @ 999 mls/hr 02/15/21 13:35 02/15/21 14:37 Sodium Chloride 0.9% 1000 Ml IV 02/15/21 14:35 Infused .Q1H1M STA Infusion Azithromycin 500 mg in 250 mls @ 250 mls/hr 02/16/21 10:00 Zithromax 500 Mg/ 250 Ml Nacl Premix IV 03/18/21 09:59 Q24H10 BRETT Ceftriaxone Sodium/Dextrose 2 g in 50 mls @ 100 mls/hr 02/15/21 17:19 02/15/21 17:47 Rocephin 2 Gm-D5w 50ml Bag IV 02/15/21 17:48 Not Given STAT STA Lorazepam 1 mg 02/15/21 14:21 02/15/21 14:24 Ativan 2 Mg/1 Ml Vial IV 02/15/21 14:22 1 mg 1XONLY ONE Administration Lorazepam Confirm 02/15/21 14:23 Ativan 2 Mg/1 Ml Vial Administered 02/15/21 14:24 Dose 2 mg .ROUTE .STK-MED ONE Intake & Output (Last 24 hours) 02/13/21 02/14/21 02/15/21 02/16/21 11:59 11:59 11:59 11:59 Intake Total 1115 Output Total 3100 Balance -1985 Weight 126.1 kg Microbiology Results (Last 24 hours) 02/15/21 17:36 Urine, Catheterized Urine Culture - Preliminary NO GROWTH TO DATE 02/15/21 12:25 Blood Blood Culture Gram Stain - Pending 02/15/21 12:25 Blood Blood Culture - Pending 02/15/21 12:35 Blood Blood Culture Gram Stain - Pending 02/15/21 12:35 Blood Blood Culture - Pending Laboratory Results (Last 24 hours) 02/16/21 02/16/21 02/16/21 06:59 05:20 05:20 WBC 4.5 RBC 5.42 Hgb 15.1 Hct 47.2 MCV 87.1 MCH 27.9 MCHC 32.0 RDW 15.0 H Plt Count 183 MPV 9.8 Segmented Neutrophils 84 H Band Neutrophils 3 H Lymphocytes (Manual) 9 L Monocytes (Manual) 4 Toxic Granulation Platelet Estimate NORMAL RBC Morphology NORMAL Anisocytosis D-Dimer Puncture Site pCO2 pO2 Base Excess O2 Saturation ABG pH ABG HCO3 ABG O2 Sat (Measured) Hebert Test A-a Gradient a/A Ratio Hemoglobin Carboxyhemoglobin Methemoglobin Potassium 5.0 Temperature POC O2 Flow Rate Vent Mode Inspiratory BiPAP Expiratory BiPAP Sodium 136 L D Chloride 102 Carbon Dioxide 25 Anion Gap 13.8 BUN 25 H Creatinine 0.78 Estimated GFR > 60.0 Glucose 153 H POC Glucometer 130 H Lactic Acid Calcium 8.3 L Magnesium Total Bilirubin 0.20 AST 76 H ALT 50 Alkaline Phosphatase 56 Troponin I NT-Pro-B Natriuret Pep Serum Total Protein 6.6 Albumin 3.4 L Urine Color Urine Appearance Urine pH Ur Specific [place] Urine Protein Urine Ketones Urine Blood Urine Nitrite Urine Bilirubin Urine Urobilinogen Ur Leukocyte Esterase Urine WBC (Auto) Urine RBC (Auto) U Epithel Cells (Auto) Urine Bacteria (Auto) Urine Mucus (Auto) Urine Culture Reflexed Urine Glucose 02/16/21 02/15/21 02/15/21 05:06 21:59 18:11 WBC RBC Hgb Hct MCV MCH MCHC RDW Plt Count MPV Segmented Neutrophils Band Neutrophils Lymphocytes (Manual) Monocytes (Manual) Toxic Granulation Platelet Estimate RBC Morphology Anisocytosis D-Dimer Puncture Site RIGHT BRACHIAL pCO2 38 pO2 72 L Base Excess -1.7 O2 Saturation 94.5 ABG pH 7.39 ABG HCO3 23 ABG O2 Sat (Measured) 96.1 Hebert Test NOT APPLICABLE A-a Gradient 594 a/A Ratio 0.11 Hemoglobin 14.9 Carboxyhemoglobin 1.1 Methemoglobin 0.6 L Potassium 4.6 Temperature POC O2 Flow Rate 100 Vent Mode Inspiratory BiPAP 14 Expiratory BiPAP 8 Sodium Chloride Carbon Dioxide 24 Anion Gap BUN Creatinine Estimated GFR Glucose POC Glucometer 156 H Lactic Acid Calcium Magnesium Total Bilirubin AST ALT Alkaline Phosphatase Troponin I NT-Pro-B Natriuret Pep Serum Total Protein Albumin Urine Color YELLOW Urine Appearance CLEAR Urine pH 5.0 Ur Specific [place] 1.029 Urine Protein NEGATIVE Urine Ketones NEGATIVE Urine Blood SMALL Urine Nitrite NEGATIVE Urine Bilirubin NEGATIVE Urine Urobilinogen NEGATIVE Ur Leukocyte Esterase NEGATIVE Urine WBC (Auto) 0-2 Urine RBC (Auto) 3-5 U Epithel Cells (Auto) NONE Urine Bacteria (Auto) NONE SEEN Urine Mucus (Auto) SLIGHT Urine Culture Reflexed NO Urine Glucose >=500 02/15/21 02/15/21 02/15/21 16:20 16:00 12:40 WBC RBC Hgb Hct MCV MCH MCHC RDW Plt Count MPV Segmented Neutrophils Band Neutrophils Lymphocytes (Manual) Monocytes (Manual) Toxic Granulation Platelet Estimate RBC Morphology Anisocytosis D-Dimer Puncture Site LEFT BRACHIAL pCO2 40 pO2 102 H Base Excess -3.9 L O2 Saturation 96.8 ABG pH 7.34 L ABG HCO3 21.6 L ABG O2 Sat (Measured) 98.2 Hebert Test NOT APPLICABLE A-a Gradient 561 a/A Ratio 0.15 Hemoglobin 13.4 Carboxyhemoglobin 0.7 Methemoglobin 0.8 L Potassium 4.8 Temperature 37.0 POC O2 Flow Rate 100 Vent Mode BiPAP Inspiratory BiPAP 14 Expiratory BiPAP 8 Sodium Chloride Carbon Dioxide Anion Gap BUN Creatinine Estimated GFR Glucose POC Glucometer Lactic Acid Calcium Magnesium Total Bilirubin AST ALT Alkaline Phosphatase Troponin I < 0.012 < 0.012 NT-Pro-B Natriuret Pep Serum Total Protein Albumin Urine Color Urine Appearance Urine pH Ur Specific [place] Urine Protein Urine Ketones Urine Blood Urine Nitrite Urine Bilirubin Urine Urobilinogen Ur Leukocyte Esterase Urine WBC (Auto) Urine RBC (Auto) U Epithel Cells (Auto) Urine Bacteria (Auto) Urine Mucus (Auto) Urine Culture Reflexed Urine Glucose 02/15/21 02/15/21 02/15/21 12:35 12:35 12:30 WBC 5.2 RBC 5.29 Hgb 14.8 Hct 45.6 MCV 86.2 MCH 28.0 MCHC 32.5 RDW 15.0 H Plt Count 163 MPV 10.4 Segmented Neutrophils 86 H Band Neutrophils Lymphocytes (Manual) 12 L Monocytes (Manual) 2 Toxic Granulation 1+ Platelet Estimate NORMAL RBC Morphology ABNORMAL Anisocytosis 1+ D-Dimer 1518 H* Puncture Site pCO2 pO2 Base Excess O2 Saturation ABG pH ABG HCO3 ABG O2 Sat (Measured) Hebert Test A-a Gradient a/A Ratio Hemoglobin Carboxyhemoglobin Methemoglobin Potassium 5.2 H Temperature POC O2 Flow Rate Vent Mode Inspiratory BiPAP Expiratory BiPAP Sodium 128 L Chloride 93 L Carbon Dioxide 23 Anion Gap 16.5 H BUN 42 H Creatinine 0.98 Estimated GFR > 60.0 Glucose 108 H POC Glucometer Lactic Acid Calcium 8.5 Magnesium 2.3 Total Bilirubin 0.50 AST 90 H ALT 47 Alkaline Phosphatase 56 Troponin I NT-Pro-B Natriuret Pep 65.9 Serum Total Protein 7.1 Albumin 3.8 Urine Color Urine Appearance Urine pH Ur Specific [place] Urine Protein Urine Ketones Urine Blood Urine Nitrite Urine Bilirubin Urine Urobilinogen Ur Leukocyte Esterase Urine WBC (Auto) Urine RBC (Auto) U Epithel Cells (Auto) Urine Bacteria (Auto) Urine Mucus (Auto) Urine Culture Reflexed Urine Glucose 02/15/21 12:18 WBC RBC Hgb Hct MCV MCH MCHC RDW Plt Count MPV Segmented Neutrophils Band Neutrophils Lymphocytes (Manual) Monocytes (Manual) Toxic Granulation Platelet Estimate RBC Morphology Anisocytosis D-Dimer Puncture Site LEFT BRACHIAL pCO2 32 L pO2 53 L Base Excess -0.3 O2 Saturation 87.0 L ABG pH 7.46 H ABG HCO3 22.8 ABG O2 Sat (Measured) 89.2 L Hebert Test NOT APPLICABLE A-a Gradient 620 a/A Ratio 0.08 Hemoglobin 14.4 Carboxyhemoglobin 1.8 Methemoglobin 0.8 L Potassium 5.0 Temperature 37.0 POC O2 Flow Rate 100 Vent Mode Inspiratory BiPAP Expiratory BiPAP Sodium Chloride Carbon Dioxide Anion Gap BUN Creatinine Estimated GFR Glucose POC Glucometer Lactic Acid 1.0 Calcium Magnesium Total Bilirubin AST ALT Alkaline Phosphatase Troponin I NT-Pro-B Natriuret Pep Serum Total Protein Albumin Urine Color Urine Appearance Urine pH Ur Specific [place] Urine Protein Urine Ketones Urine Blood Urine Nitrite Urine Bilirubin Urine Urobilinogen Ur Leukocyte Esterase Urine WBC (Auto) Urine RBC (Auto) U Epithel Cells (Auto) Urine Bacteria (Auto) Urine Mucus (Auto) Urine Culture Reflexed Urine Glucose Orders (Last 24 hours) Category Date Time Status Bedrest ROUTINE Activity 02/15/21 17:19 Active Up With Assistance ROUTINE Activity 02/15/21 17:19 Active Admit as Inpatient ROUTINE Care 02/15/21 17:19 Active Tenterer STAT Care 02/15/21 12:19 Completed Catheter Care Record Q6H Care 02/15/21 17:19 Active Code Status Order ROUTINE Care 02/15/21 17:19 Active EKG-ER Only STAT Care 02/15/21 12:18 Completed Fall Protocol Q1H Care 02/15/21 17:19 Active Flores [Catheter-Drybranch Flores] STAT Care 02/15/21 17:19 Completed IV Care Q6H Care 02/15/21 17:19 Active IV Insertion STAT Care 02/15/21 12:18 Completed Neuro Checks Q2H Care 02/15/21 17:19 Active Nursing [Miscellaneous Nursing Order] ROUTINE Care 02/16/21 10:30 Active Pulse Oximetry (ED) STAT Care 02/15/21 12:18 Completed Rectal Temperature STAT Care 02/15/21 12:18 Completed Infection Control Consult ROUTINE Cons 02/15/21 17:20 Active Heart-Healthy Diet Diet 02/15/21 Dinner Active CHEST 1 VIEW (PORTABLE) Routine Exams 02/16/21 10:32 Completed CHEST 1 VIEW (PORTABLE) Stat Exams 02/15/21 13:01 Completed CHEST WITH CONTRAST [CT] Stat Exams 02/15/21 15:39 Completed ABG [ARTERIAL BLOOD GASES] Stat Lab 02/15/21 16:00 Completed ARTERIAL BLOOD GASES Routine Lab 02/16/21 05:06 Completed ARTERIAL BLOOD GASES Stat Lab 02/15/21 12:18 Completed BLOOD CULTURE Stat Lab 02/15/21 12:25 Received CBC W DIFF AM.LAB Lab 02/16/21 05:20 Completed CBC W DIFF Stat Lab 02/15/21 12:35 Completed CMP AM.LAB Lab 02/16/21 05:20 Completed CMP Stat Lab 02/15/21 12:35 Completed CULTURE,URINE Stat Lab 02/15/21 17:36 Results D-DIMER QUANTITATIVE Stat Lab 02/15/21 12:30 Completed Lactic Acid Stat Lab 02/15/21 12:18 Completed MAGNESIUM Stat Lab 02/15/21 12:35 Completed Manual Differential NC Routine Lab 02/16/21 05:20 Completed Manual Differential NC Stat Lab 02/15/21 12:35 Completed NT PRO BNP Stat Lab 02/15/21 12:35 Completed POCT GLUCOSE Stat Lab 02/15/21 21:59 Completed POCT GLUCOSE Stat Lab 02/16/21 06:59 Completed TROPONIN Q3H Lab 02/15/21 12:40 Completed TROPONIN Q3H Lab 02/15/21 16:20 Completed UA W/RFX UR CULTURE Routine Lab 02/15/21 18:11 Completed Acetaminophen 325 mg [Tylenol 325 mg] Med 02/15/21 17:19 Active 650 mg PO Q4H PRN PRN Acetaminophen Susp [Tylenol Suspension 160 mg/5 ml Med 02/15/21 15:35 Discontinued *] 160 mg .ROUTE .STK-MED ONE Acetaminophen Susp [Tylenol Suspension 160 mg/5 ml Med 02/15/21 15:41 Discontinued *] 600 mg PO STAT ONE Azithromycin 500 mg/250 ml [Zithromax 500 MG/ 250 ML Med 02/16/21 10:00 Discontinued NaCl Premix] 500 mg in 250 ml IV Q24H10 Azithromycin 500 mg/250 ml [Zithromax 500 MG/ 250 ML Med 02/15/21 12:18 Discontinued NaCl Premix] 500 mg in 250 ml IV STAT Azithromycin 500 mg/250 ml [Zithromax 500 MG/ 250 ML Med 02/15/21 12:27 Discontinued NaCl Premix] 500 mg in 250 ml IV UD Ceftriaxone 2 GM/50 ML PREMIX* [ROCEPHIN 2 Gm-D5w 50ML Med 02/15/21 12:19 Discontinued BAG] 2 g in 50 ml IV STAT Ceftriaxone 2 GM/50 ML PREMIX* [ROCEPHIN 2 Gm-D5w 50ML Med 02/15/21 17:19 Discontinued BAG] 2 g in 50 ml IV STAT Ceftriaxone 2 GM/50 ML PREMIX* [ROCEPHIN 2 Gm-D5w 50ML Med 02/15/21 12:28 Discontinued BAG] 2 g in 50 ml IV UD Dexamethasone Sod Phosphate [Decadron 10Mg Inj.] Med 02/15/21 12:27 Discontinued 10 mg .ROUTE .STK-MED ONE Dexamethasone Sod Phosphate [Decadron 10Mg Inj.] Med 02/16/21 10:00 Active 6 mg IV DAILY Dexamethasone Sod Phosphate [Decadron 10Mg Inj.] Med 02/15/21 12:20 Discontinued 6 mg IV STAT ONE Enoxaparin Sodium [Enoxaparin Sodium] Med 02/16/21 10:00 Active 40 mg SQ DAILY Hold Metformin [Hold Metformin Products For 48 Hours] Med 02/15/21 14:40 Active 1 each MC Q24H Lorazepam 2 mg/1 ml [Ativan 2 MG/1 ML VIAL] Med 02/15/21 14:21 Discontinued 1 mg IV 1XONLY ONE Lorazepam 2 mg/1 ml [Ativan 2 MG/1 ML VIAL] Med 02/16/21 02:16 Active 1 mg IV Q4H PRN PRN Lorazepam 2 mg/1 ml [Ativan 2 MG/1 ML VIAL] Med 02/15/21 14:23 D iscontinued 2 mg .ROUTE .STK-MED ONE NaCl 0.9% 1000 ml [Sodium Chloride 0.9% 1000 ML] 1,000 Med 02/15/21 12:27 Discontinued ml .ROUTE UD NaCl 0.9% 1000 ml [Sodium Chloride 0.9% 1000 ML] 1,000 Med 02/15/21 17:19 Active ml IV 100 mls/hr NaCl 0.9% 1000 ml [Sodium Chloride 0.9% 1000 ML] 1,000 Med 02/15/21 13:35 Discontinued ml IV 999 mls/hr Ondansetron HCl 4 mg/2 ml [Zofran 4 MG/2 ML VIAL] Med 02/15/21 17:19 Active 4 mg IV Q6H PRN PRN Pantoprazole 40 mg [Protonix 40 mg IV] Med 02/16/21 10:00 Active 40 mg IV Q24H10 Remdesivir 100 mg Med 02/16/21 15:00 Active NaCl 0.9% 100Ml [Sodium Chloride 0.9% 100 ML BAG] 100 ml IV Q24H Remdesivir 200 mg Med 02/15/21 12:20 Discontinued NaCl 0.9% 250 ml [Sodium Chloride 0.9% 250 ML] 250 ml IV ONCE BiPap/CPAP ROUTINE RT 02/15/21 18:11 Active BiPap/CPAP STAT RT 02/15/21 12:18 Completed Oxygen Oxymizer LPM 9 lpm RT 02/15/21 18:10 Active Pulse Oximetry .continuos RT 02/15/21 18:10 Active Patient Care Notes (Last 24 hours) 02/16/21 10:38 Nursing Note by Susu Turner Call made to [facility], , to request transfer for higher level of care. Awaiting call back, and Dr. Ford to speak with Hospitalist. Initialized on 02/16/21 10:38 - END OF NOTE 02/16/21 09:23 Case Management Note by Virginia Velasco PATIENT ACUTELY ILL- ON 100% BIPAP- WILL DEFER CASE MANAGEMENT ASSESS UNTIL MORE STABLE AND CLOSER TO TIME OF DC Initialized on 02/16/21 09:23 - END OF NOTE 02/16/21 02:18 Nursing Note by Constance Mata Called Dr. Ford due to patient anxiety level/ ordered ativan Q4 PRN Initialized on 02/16/21 02:18 - END OF NOTE 02/15/21 18:06 Respiratory Note by Martina Alfred PT TRANSPORTED TO 109 ON 100% NRB. PLACED ON BIPAP 21/02 R-8 FIO2 100% Initialized on 02/15/21 18:06 - END OF NOTE Patient is getting transferred to [facility] - Vitals & Intake/Output Vital Signs: Vital Signs Temperature 96.9 F 02/16/21 07:32 Pulse Rate 84 02/16/21 09:54 Respiratory Rate 28 H 02/16/21 10:00 Blood Pressure 161/72 02/16/21 07:32 O2 Sat by Pulse Oximetry 91 L 02/16/21 09:54 Intake & Output: Intake & Output 02/13/21 02/14/21 02/15/21 02/16/21 11:59 11:59 11:59 11:59 Intake Total 1115 Output Total 3100 Balance -1985 Weight 126.1 kg - Lab Result Diagrams: 02/16/21 05:20 02/16/21 05:20 Lab Results-Last 24 Hrs: Lab Results-Last 24 Hours 02/15/21 02/15/21 02/15/21 Range/Units 12:18 12:30 12:35 WBC 5.2 (4.0-10.5) K/mm3 RBC 5.29 (4.1-5.6) M/mm3 Hgb 14.8 (12.5-18.0) gm/dl Hct 45.6 (42-50) % MCV 86.2 (78-100) fl MCH 28.0 (26-32) pg MCHC 32.5 (32-36) g/dl RDW 15.0 H (11.5-14.0) % Plt Count 163 (150-450) K/mm3 MPV 10.4 (7.5-11.0) fl Segmented Neutrophils 86 H (36.-66.) % Band Neutrophils (0.0-2.0) % Lymphocytes (Manual) 12 L (24-44) % Monocytes (Manual) 2 (0.0-12.0) % Toxic Granulation 1+ Platelet Estimate NORMAL (NORMAL) RBC Morphology ABNORMAL Anisocytosis 1+ D-Dimer 1518 H* (215-500) ng/mL Puncture Site LEFT BRACHIAL pCO2 32 L (35-45) mmHg pO2 53 L (75-100) mmHg Base Excess -0.3 (-2.0-2.0) O2 Saturation 87.0 L (94-100) g/dF ABG pH 7.46 H (7.35-7.45) ABG HCO3 22.8 (22-28) ABG O2 Sat (Measured) 89.2 L (95-100) % Hebert Test NOT APPLICABLE A-a Gradient 620 a/A Ratio 0.08 Hemoglobin 14.4 Carboxyhemoglobin 1.8 (0.0-6.9) % THgb Methemoglobin 0.8 L (1.4-1.5) % Potassium 5.0 (3.5-5.1) Temperature 37.0 C POC O2 Flow Rate 100 % Vent Mode Inspiratory BiPAP Expiratory BiPAP Sodium (137-145) mmol/L Chloride (98-107) mmol/L Carbon Dioxide (22-30) mmol/L Anion Gap (5-15) MEQ/L BUN (9-20) mg/dL Creatinine (0.66-1.25) mg/dL Estimated GFR ML/MIN Glucose (74-106) mg/dL POC Glucometer (74 to 106) mg/dL Lactic Acid 1.0 (0.4-2.0) Calcium (8.4-10.2) mg/dL Magnesium (1.6-2.3) mg/dL Total Bilirubin (0.2-1.3) mg/dL AST (17-59) U/L ALT (0-50) U/L Alkaline Phosphatase (38-126) U/L Troponin I (0.000-0.034) ng/mL NT-Pro-B Natriuret Pep (0-900) pg/mL Serum Total Protein (6.3-8.2) g/dL Albumin (3.5-5.0) g/dL Urine Color (YELLOW) Urine Appearance (CLEAR) Urine pH (5-6) Ur Specific [place] (1.005-1.025) Urine Protein (Negative) Urine Ketones (NEGATIVE) Urine Blood (0-5) Subhash/ul Urine Nitrite (NEGATIVE) Urine Bilirubin (NEGATIVE) Urine Urobilinogen (0-1) mg/dL Ur Leukocyte Esterase (NEGATIVE) Urine WBC (Auto) (0-5) /HPF Urine RBC (Auto) (0-2) /HPF U Epithel Cells (Auto) (FEW) /HPF Urine Bacteria (Auto) (NEGATIVE) /HPF Urine Mucus (Auto) (NEGATIVE) /HPF Urine Culture Reflexed (NO) Urine Glucose (NEGATIVE) mg/dL 02/15/21 02/15/21 02/15/21 Range/Units 12:35 12:40 16:00 WBC (4.0-10.5) K/mm3 RBC (4.1-5.6) M/mm3 Hgb (12.5-18.0) gm/dl Hct (42-50) % MCV (78-100) fl MCH (26-32) pg MCHC (32-36) g/dl RDW (11.5-14.0) % Plt Count (150-450) K/mm3 MPV (7.5-11.0) fl Segmented Neutrophils (36.-66.) % Band Neutrophils (0.0-2.0) % Lymphocytes (Manual) (24-44) % Monocytes (Manual) (0.0-12.0) % Toxic Granulation Platelet Estimate (NORMAL) RBC Morphology Anisocytosis D-Dimer (215-500) ng/mL Puncture Site LEFT BRACHIAL pCO2 40 (35-45) mmHg pO2 102 H (75-100) mmHg Base Excess -3.9 L (-2.0-2.0) O2 Saturation 96.8 (94-100) g/dF ABG pH 7.34 L (7.35-7.45) ABG HCO3 21.6 L (22-28) ABG O2 Sat (Measured) 98.2 (95-100) % Hebert Test NOT APPLICABLE A-a Gradient 561 a/A Ratio 0.15 Hemoglobin 13.4 Carboxyhemoglobin 0.7 (0.0-6.9) % THgb Methemoglobin 0.8 L (1.4-1.5) % Potassium 5.2 H 4.8 (3.5-5.1) Temperature 37.0 C POC O2 Flow Rate 100 % Vent Mode BiPAP Inspiratory BiPAP 14 Expiratory BiPAP 8 Sodium 128 L (137-145) mmol/L Chloride 93 L (98-107) mmol/L Carbon Dioxide 23 (22-30) mmol/L Anion Gap 16.5 H (5-15) MEQ/L BUN 42 H (9-20) mg/dL Creatinine 0.98 (0.66-1.25) mg/dL Estimated GFR > 60.0 ML/MIN Glucose 108 H (74-106) mg/dL POC Glucometer (74 to 106) mg/dL Lactic Acid (0.4-2.0) Calcium 8.5 (8.4-10.2) mg/dL Magnesium 2.3 (1.6-2.3) mg/dL Total Bilirubin 0.50 (0.2-1.3) mg/dL AST 90 H (17-59) U/L ALT 47 (0-50) U/L Alkaline Phosphatase 56 (38-126) U/L Troponin I < 0.012 (0.000-0.034) ng/mL NT-Pro-B Natriuret Pep 65.9 (0-900) pg/mL Serum Total Protein 7.1 (6.3-8.2) g/dL Albumin 3.8 (3.5-5.0) g/dL Urine Color (YELLOW) Urine Appearance (CLEAR) Urine pH (5-6) Ur Specific [place] (1.005-1.025) Urine Protein (Negative) Urine Ketones (NEGATIVE) Urine Blood (0-5) Subhash/ul Urine Nitrite (NEGATIVE) Urine Bilirubin (NEGATIVE) Urine Urobilinogen (0-1) mg/dL Ur Leukocyte Esterase (NEGATIVE) Urine WBC (Auto) (0-5) /HPF Urine RBC (Auto) (0-2) /HPF U Epithel Cells (Auto) (FEW) /HPF Urine Bacteria (Auto) (NEGATIVE) /HPF Urine Mucus (Auto) (NEGATIVE) /HPF Urine Culture Reflexed (NO) Urine Glucose (NEGATIVE) mg/dL 02/15/21 02/15/21 02/15/21 Range/Units 16:20 18:11 21:59 WBC (4.0-10.5) K/mm3 RBC (4.1-5.6) M/mm3 Hgb (12.5-18.0) gm/dl Hct (42-50) % MCV (78-100) fl MCH (26-32) pg MCHC (32-36) g/dl RDW (11.5-14.0) % Plt Count (150-450) K/mm3 MPV (7.5-11.0) fl Segmented Neutrophils (36.-66.) % Band Neutrophils (0.0-2.0) % Lymphocytes (Manual) (24-44) % Monocytes (Manual) (0.0-12.0) % Toxic Granulation Platelet Estimate (NORMAL) RBC Morphology Anisocytosis D-Dimer (215-500) ng/mL Puncture Site pCO2 (35-45) mmHg pO2 (75-100) mmHg Base Excess (-2.0-2.0) O2 Saturation (94-100) g/dF ABG pH (7.35-7.45) ABG HCO3 (22-28) ABG O2 Sat (Measured) (95-100) % Hebert Test A-a Gradient a/A Ratio Hemoglobin Carboxyhemoglobin (0.0-6.9) % THgb Methemoglobin (1.4-1.5) % Potassium (3.5-5.1) Temperature C POC O2 Flow Rate % Vent Mode Inspiratory BiPAP Expiratory BiPAP Sodium (137-145) mmol/L Chloride (98-107) mmol/L Carbon Dioxide (22-30) mmol/L Anion Gap (5-15) MEQ/L BUN (9-20) mg/dL Creatinine (0.66-1.25) mg/dL Estimated GFR ML/MIN Glucose (74-106) mg/dL POC Glucometer 156 H (74 to 106) mg/dL Lactic Acid (0.4-2.0) Calcium (8.4-10.2) mg/dL Magnesium (1.6-2.3) mg/dL Total Bilirubin (0.2-1.3) mg/dL AST (17-59) U/L ALT (0-50) U/L Alkaline Phosphatase (38-126) U/L Troponin I < 0.012 (0.000-0.034) ng/mL NT-Pro-B Natriuret Pep (0-900) pg/mL Serum Total Protein (6.3-8.2) g/dL Albumin (3.5-5.0) g/dL Urine Color YELLOW (YELLOW) Urine Appearance CLEAR (CLEAR) Urine pH 5.0 (5-6) Ur Specific [place] 1.029 (1.005-1.025) Urine Protein NEGATIVE (Negative) Urine Ketones NEGATIVE (NEGATIVE) Urine Blood SMALL (0-5) Subhash/ul Urine Nitrite NEGATIVE (NEGATIVE) Urine Bilirubin NEGATIVE (NEGATIVE) Urine Urobilinogen NEGATIVE (0-1) mg/dL Ur Leukocyte Esterase NEGATIVE (NEGATIVE) Urine WBC (Auto) 0-2 (0-5) /HPF Urine RBC (Auto) 3-5 (0-2) /HPF U Epithel Cells (Auto) NONE (FEW) /HPF Urine Bacteria (Auto) NONE SEEN (NEGATIVE) /HPF Urine Mucus (Auto) SLIGHT (NEGATIVE) /HPF Urine Culture Reflexed NO (NO) Urine Glucose >=500 (NEGATIVE) mg/dL 02/16/21 02/16/21 02/16/21 Range/Units 05:06 05:20 05:20 WBC 4.5 (4.0-10.5) K/mm3 RBC 5.42 (4.1-5.6) M/mm3 Hgb 15.1 (12.5-18.0) gm/dl Hct 47.2 (42-50) % MCV 87.1 (78-100) fl MCH 27.9 (26-32) pg MCHC 32.0 (32-36) g/dl RDW 15.0 H (11.5-14.0) % Plt Count 183 (150-450) K/mm3 MPV 9.8 (7.5-11.0) fl Segmented Neutrophils 84 H (36.-66.) % Band Neutrophils 3 H (0.0-2.0) % Lymphocytes (Manual) 9 L (24-44) % Monocytes (Manual) 4 (0.0-12.0) % Toxic Granulation Platelet Estimate NORMAL (NORMAL) RBC Morphology NORMAL Anisocytosis D-Dimer (215-500) ng/mL Puncture Site RIGHT BRACHIAL pCO2 38 (35-45) mmHg pO2 72 L (75-100) mmHg Base Excess -1.7 (-2.0-2.0) O2 Saturation 94.5 (94-100) g/dF ABG pH 7.39 (7.35-7.45) ABG HCO3 23 (22-28) ABG O2 Sat (Measured) 96.1 (95-100) % Hebert Test NOT APPLICABLE A-a Gradient 594 a/A Ratio 0.11 Hemoglobin 14.9 Carboxyhemoglobin 1.1 (0.0-6.9) % THgb Methemoglobin 0.6 L (1.4-1.5) % Potassium 4.6 5.0 (3.5-5.1) Temperature C POC O2 Flow Rate 100 % Vent Mode Inspiratory BiPAP 14 Expiratory BiPAP 8 Sodium 136 L D (137-145) mmol/L Chloride 102 (98-107) mmol/L Carbon Dioxide 24 25 (22-30) mmol/L Anion Gap 13.8 (5-15) MEQ/L BUN 25 H (9-20) mg/dL Creatinine 0.78 (0.66-1.25) mg/dL Estimated GFR > 60.0 ML/MIN Glucose 153 H (74-106) mg/dL POC Glucometer (74 to 106) mg/dL Lactic Acid (0.4-2.0) Calcium 8.3 L (8.4-10.2) mg/dL Magnesium (1.6-2.3) mg/dL Total Bilirubin 0.20 (0.2-1.3) mg/dL AST 76 H (17-59) U/L ALT 50 (0-50) U/L Alkaline Phosphatase 56 (38-126) U/L Troponin I (0.000-0.034) ng/mL NT-Pro-B Natriuret Pep (0-900) pg/mL Serum Total Protein 6.6 (6.3-8.2) g/dL Albumin 3.4 L (3.5-5.0) g/dL Urine Color (YELLOW) Urine Appearance (CLEAR) Urine pH (5-6) Ur Specific [place] (1.005-1.025) Urine Protein (Negative) Urine Ketones (NEGATIVE) Urine Blood (0-5) Subhash/ul Urine Nitrite (NEGATIVE) Urine Bilirubin (NEGATIVE) Urine Urobilinogen (0-1) mg/dL Ur Leukocyte Esterase (NEGATIVE) Urine WBC (Auto) (0-5) /HPF Urine RBC (Auto) (0-2) /HPF U Epithel Cells (Auto) (FEW) /HPF Urine Bacteria (Auto) (NEGATIVE) /HPF Urine Mucus (Auto) (NEGATIVE) /HPF Urine Culture Reflexed (NO) Urine Glucose (NEGATIVE) mg/dL 02/16/21 Range/Units 06:59 WBC (4.0-10.5) K/mm3 RBC (4.1-5.6) M/mm3 Hgb (12.5-18.0) gm/dl Hct (42-50) % MCV (78-100) fl MCH (26-32) pg MCHC (32-36) g/dl RDW (11.5-14.0) % Plt Count (150-450) K/mm3 MPV (7.5-11.0) fl Segmented Neutrophils (36.-66.) % Band Neutrophils (0.0-2.0) % Lymphocytes (Manual) (24-44) % Monocytes (Manual) (0.0-12.0) % Toxic Granulation Platelet Estimate (NORMAL) RBC Morphology Anisocytosis D-Dimer (215-500) ng/mL Puncture Site pCO2 (35-45) mmHg pO2 (75-100) mmHg Base Excess (-2.0-2.0) O2 Saturation (94-100) g/dF ABG pH (7.35-7.45) ABG HCO3 (22-28) ABG O2 Sat (Measured) (95-100) % Hebert Test A-a Gradient a/A Ratio Hemoglobin Carboxyhemoglobin (0.0-6.9) % THgb Methemoglobin (1.4-1.5) % Potassium (3.5-5.1) Temperature C POC O2 Flow Rate % Vent Mode Inspiratory BiPAP Expiratory BiPAP Sodium (137-145) mmol/L Chloride (98-107) mmol/L Carbon Dioxide (22-30) mmol/L Anion Gap (5-15) MEQ/L BUN (9-20) mg/dL Creatinine (0.66-1.25) mg/dL Estimated GFR ML/MIN Glucose (74-106) mg/dL POC Glucometer 130 H (74 to 106) mg/dL Lactic Acid (0.4-2.0) Calcium (8.4-10.2) mg/dL Magnesium (1.6-2.3) mg/dL Total Bilirubin (0.2-1.3) mg/dL AST (17-59) U/L ALT (0-50) U/L Alkaline Phosphatase (38-126) U/L Troponin I (0.000-0.034) ng/mL NT-Pro-B Natriuret Pep (0-900) pg/mL Serum Total Protein (6.3-8.2) g/dL Albumin (3.5-5.0) g/dL Urine Color (YELLOW) Urine Appearance (CLEAR) Urine pH (5-6) Ur Specific [place] (1.005-1.025) Urine Protein (Negative) Urine Ketones (NEGATIVE) Urine Blood (0-5) Subhash/ul Urine Nitrite (NEGATIVE) Urine Bilirubin (NEGATIVE) Urine Urobilinogen (0-1) mg/dL Ur Leukocyte Esterase (NEGATIVE) Urine WBC (Auto) (0-5) /HPF Urine RBC (Auto) (0-2) /HPF U Epithel Cells (Auto) (FEW) /HPF Urine Bacteria (Auto) (NEGATIVE) /HPF Urine Mucus (Auto) (NEGATIVE) /HPF Urine Culture Reflexed (NO) Urine Glucose (NEGATIVE) mg/dL Micro Results-Entire Visit: Microbiology 02/15/21 17:36 Urine Culture - Preliminary Urine, Catheterized NO GROWTH TO DATE Accuchecks Date 02/15/21 Time 22:03 - Radiology Exams Ordered Rad Exams-Entire Visit: Radiology Procedures Category Date Time Status CHEST 1 VIEW (PORTABLE) Routine Exams 02/16/21 10:32 Completed CHEST 1 VIEW (PORTABLE) Stat Exams 02/15/21 13:01 Completed CHEST WITH CONTRAST [CT] Stat Exams 02/15/21 15:39 Completed - Procedures and Test Procedures and Tests throughout Hospitalization: Therapy Orders & Screens 02/15/21 12:18 BiPap/CPAP STAT Comment: 02/15/21 18:10 Oxygen Oxymizer LPM 9 lpm Comment: Diagnosis: respiratory failure 02/15/21 18:11 BiPap/CPAP ROUTINE Comment: Diagnosis: respiratory failure - Discharge Discharge Date: 02/16/21 Disposition: DC TO [facility] Condition: Fair Prescriptions: No Action lisinopriL [Lisinopril] 10 mg PO DAILY Tamsulosin HCl 2 tab PO DAILY Simvastatin 40 mg PO BID Mirabegron [Myrbetriq] 50 mg PO DAILY Metoprolol Tartrate 25 mg [Lopressor 25MG Tab] 25 mg PO BID Empagliflozin/Metformin HCl [Synjardy 5-1,000 mg Tablet] 1 ea PO DAILY Diphenoxylate HCl/Atropine [Diphenoxylate-Atrop 2.5-0.025] 1 each PO Q2H/PRN PRN PRN Reason: Diarrhea Benzonatate 200 mg PO TID Follow up with: LULU FORD MD [Primary Care Provider] - Forms: Ambulance Transport Record, Transfer Record Inter-Agency
[2021-02-16 11:58] VITALS: BP 141/76; PULSE 86
[2021-02-16] MEDS ORDERED: REMDESIVIR 100 MG in Sodium Chloride 0.9% 100 ML BAG 100 ML IV SCH (15:00)
== END 2021-02-16 11:42 | disposition home or self-care (01) ==
LOC: ED 11:59 → MED SURG 17:00 → INTOOBSV 17:00 → UNDOADMIN 17:00 → UNDODISIN 02-16 11:42
PROVIDERS: ADMIT General Practice; ATTEND General Practice
DX: J12.82 Pneumonia due to coronavirus disease 2019 (principal); U07.1 COVID-19; J96.90 Respiratory failure, unspecified, unspecified whether with hypoxia or hypercapnia; R07.9 Chest pain, unspecified; R42 Dizziness and giddiness; Z79.899 Other long term (current) drug therapy; E11.9 Type 2 diabetes mellitus without complications
CPT/HCPCS: 36000; 36415; 36600; 71045; 71260; 80053; 81001; 82375; 82803; 82947; 83605; 83735; 83880; 84484; 85025; 85379; 87040; 87086; 93005; 93041; 93268; 94002; 94003; 94760; 94762; 96365; 96366; 96374; 96375; 99285; 99291; G0378; J0456; J0696; J1100; J1650; J2060; A9270-GY